=== PATIENT | female | born 1975 | race Caucasian/White ===

== ENCOUNTER 2020-07-16 18:18 | Emergency (ER) | payer BC, OTHER ==
[2020-07-16 20:19] LABS: HEMOGLOBIN 12.7 gm/dl (12.3-15.3); RED BLOOD COUNT 3.92 M/UL (4.00-5.10)
== END 2020-07-16 23:15 | disposition home or self-care (01) ==
LOC: ER1 18:18
PROVIDERS: Physician Assistant
DX: R10.84 Generalized abdominal pain (principal); Z88.0 Allergy status to penicillin; Z88.8 Allergy status to other drugs, medicaments and biological substances; Z90.710 Acquired absence of both cervix and uterus; Z90.49 Acquired absence of other specified parts of digestive tract
CPT/HCPCS: 36415; 80053; 81001; 83690; 85025; 87086; 99284

== ENCOUNTER 2020-11-30 04:11 | Inpatient (IN) | payer BC ==
[~2020-11-30] VITALS: Ht 165.1 cm; Wt 75.8 kg
[2020-11-30 04:41] LABS: HEMOGLOBIN 11.7 gm/dl (12.3-15.3); RED BLOOD COUNT 3.73 M/UL (4.00-5.10); WHITE BLOOD COUNT 10.4 K/UL (4.5-11.0)
[2020-11-30] MEDS ORDERED: IBU800 MG PO (09:33)
[2020-11-30] MEDS ORDERED: LEVOTHYROXINE175 MCG PO (09:33)
--- NOTE | 2020-11-30 18:04 | NUR ---
1345 PT TO FLOOR VIA WC PER ER STAFF, OR HERE TO GET PATIENT CONCURRENTLY
[2020-12-02] MEDS ORDERED: LEVOFLOXACIN500 MG PO (09:40)
[2020-12-02] MEDS ORDERED: FLAGYL 250 MG250 MG PO (09:40)
== END 2020-12-02 12:07 | disposition home or self-care (01) | DRG 326 ==
LOC: ER1 04:11 → CDU 05:42 → M/S 13:42
PROVIDERS: Emergency Medicine; ADMIT Surgery
PROC: 0DTJ4ZZ Resection of Appendix, Percutaneous Endoscopic Approach (ICD-10-PCS; 2020-11-30)
PROC: 0DP64CZ Removal of Extraluminal Device from Stomach, Percutaneous Endoscopic Approach (ICD-10-PCS; principal; 2020-11-30 14:19)
PROC: 0DNU4ZZ Release Omentum, Percutaneous Endoscopic Approach (ICD-10-PCS; 2020-11-30 14:19)
DX: K35.33 Acute appendicitis with perforation, localized peritonitis, and gangrene, with abscess (principal); K65.1 Peritoneal abscess; Z20.822 Contact with and (suspected) exposure to COVID-19; E03.9 Hypothyroidism, unspecified; Z90.710 Acquired absence of both cervix and uterus; Z90.49 Acquired absence of other specified parts of digestive tract; Z87.59 Personal history of other complications of pregnancy, childbirth and the puerperium
CPT/HCPCS: 71045; 80053; 81001; 82550; 82553; 83605; 83690; 83874; 84484; 85025; 93005; 96374; 96375; 99285; J1100; J1170; J1885; J1956; J2001; J2250; J2270; J2405; J2550; J2704; J2710; J3010; J3370; J7030; J7050; J7120; Q9967; U0002

== ENCOUNTER 2021-02-17 08:02 | Observation (INO) | payer BC ==
[~2021-02-17] VITALS: Ht 165.1 cm; Wt 77.1 kg
[~2021-02-17 08:02] MED LIST: AUGMENTIN 875-1 EACH PO; AZITHROMYCIN250 MG PO; FLAGYL 250 MG250 MG PO; LEVOFLOXACIN500 MG PO; MEDROL DOSEPAK 24 MG PO; ZOFRAN ODT 4 MG4 MG SL
[2021-02-17] MEDS ORDERED: IBU800 MG PO (09:33)
[2021-02-17] MEDS ORDERED: LEVOTHYROXINE175 MCG PO (09:33)
[2021-02-17 10:08] LABS: HEMOGLOBIN 10.2 gm/dl (12.3-15.3); RED BLOOD COUNT 3.49 M/UL (4.00-5.10); WHITE BLOOD COUNT 15.7 K/UL (4.5-11.0)
[2021-02-17 10:51] LABS: BUN/CREATININE RATIO 11 (0-10)
[2021-02-17] MEDS ORDERED: OMEPRAZOLE40 MG PO (15:38)
[2021-02-18 05:13] LABS: HEMOGLOBIN 8.9 gm/dl (12.3-15.3); WHITE BLOOD COUNT 15.7 K/UL (4.5-11.0)
[2021-02-18 05:28] LABS: RED BLOOD COUNT 3.09 M/UL (4.00-5.10)
[2021-02-18 11:47] LABS: BUN/CREATININE RATIO 10 (0-10)
[2021-02-19] MEDS ORDERED: FLAGYL 250 MG250 MG GT (11:36)
[2021-02-19] MEDS ORDERED: LEVOFLOXACIN500 MG PO (11:38)
== END 2021-02-19 12:45 | disposition home or self-care (01) ==
LOC: ER1 08:02 → M/S 11:34 → CDU 11:34 → M/S 11:34
PROVIDERS: Emergency Medicine; ADMIT Surgery
DX: K65.1 Peritoneal abscess (principal); N73.9 Female pelvic inflammatory disease, unspecified; E87.6 Hypokalemia; E03.9 Hypothyroidism, unspecified; Z20.822 Contact with and (suspected) exposure to COVID-19; Z90.49 Acquired absence of other specified parts of digestive tract; Z90.710 Acquired absence of both cervix and uterus; Z79.899 Other long term (current) drug therapy; Z88.0 Allergy status to penicillin
CPT/HCPCS: 36415; 80048; 80076; 81001; 83605; 83690; 85025; 85027; 86140; 87040; 96374; 96375; 99285; C9113; G0378; J2185; J2270; J2405; J3370; J3480; J7070; Q9967; U0002

== ENCOUNTER 2021-07-20 22:36 | Emergency (ER) | payer BC ==
[~2021-07-20 22:36] MED LIST changes: +FLAGYL 250 MG250 MG GT; +IBU800 MG PO; +LEVOTHYROXINE175 MCG PO; +OMEPRAZOLE40 MG PO
== END 2021-07-20 23:36 | disposition left against medical advice (07) ==
LOC: ER1 22:36
DX: Z53.21 Procedure and treatment not carried out due to patient leaving prior to being seen by health care provider (principal)